=== PATIENT | female | born 1935 | race Caucasian/White ===

== ENCOUNTER 2021-12-27 14:09 | Outpatient (CLI) | payer MEDICARE, BC, SELFPAY ==
--- NOTE | ~2021-12-27 | CT_ITS ---
EXAMINATION: CT lumbar spine wo con DATE: 12/27/2021 14:44 INDICATION: Right-sided sciatica. TECHNIQUE: Computed tomography (CT) of the lumbar spine was performed without intravenous contrast. A utomated exposure control and iterative reconstruction technique were employed. The dose-length produ ct was 884.46 mGy-cm. COMPARISON: None FINDINGS: 20 degrees lumbar levoscoliosis. 2 mm retrolisthesis L1 on L2 and 4 mm anterolisthesis L4 on L5. Vert ebral body heights are normal. No fracture. Moderate to severe left-sided predominant disc height los s at T12-L1 and L1-L2 and moderate to severe right-sided predominant disc height loss at L3-L4. More diffuse moderate disc height loss at T11-T12 and L2-L3. Mild left-sided disc height loss at L5-S1. Th ere is hypoattenuation material of calcific density along the periphery of the thecal sac beginning a t the level of L3 and extending cephalad to the S2 level. There is curvilinear calcification along th e periphery of the central canal extending from L2 through S2, likely dural-based. Serially at the le suzi of L4 there appear to be a deeper and more superficial layer with intervening soft tissue density , there was a short thickening of the dura with deeper and more superficial calcifications or whether the internal calcification is associated with the nerve roots such as in the setting of arachnoiditi s ossificans. There is calcified atherosclerosis of the aorta and many of the other arteries in the p osterior pelvis there are few scattered sigmoid diverticula without adjacent inflammatory change to s uggest diverticulosis. 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 The following disc leve ls are specifically discussed: T11-T12: Disc is bulging. There is mild left and mild to moderate right facet joint osteoarthritis. T here is mild left neural foraminal stenosis. There is mild central canal stenosis. T12-L1: Disc is bulging. There is moderate right and severe left facet joint osteoarthritis. There is moderate right and mild left neural foraminal stenosis. There is mild central canal stenosis. L1-L2: Disc is bulging. There is moderate right and mild to moderate left facet joint osteoarthritis. There is moderate left and mild to moderate right neural foraminal stenosis. There is moderate centr al canal stenosis. L2-L3: Disc is bulging. There is mild right and moderate left facet joint osteoarthritis. There is mo derate left and moderate to severe right neural foraminal stenosis. There is mild to moderate central canal stenosis. L3-L4: Posterior disc osteophyte complex. There is mild to moderate left and moderate to severe right facet joint osteoarthritis. There is mild to moderate left and moderate to severe right neural ivett inal stenosis. There is moderate central canal stenosis. L4-L5: Disc is bulging. There is severe bilateral facet joint osteoarthritis. There is moderate bilat eral neural foraminal stenosis. There is severe central canal stenosis with the peripheral likely dur al based thin curvilinear calcification tapering to a single thin triangular calcification at the stevie tral aspect of the central canal at the level of the disc space. L5-S1: Disc is bulging. There is moderate to severe bilateral facet joint osteoarthritis. There is mi ld left neural foraminal stenosis. There is mild central canal stenosis. IMPRESSION: 1. 20 degrees lumbar levoscoliosis with moderate to severe spondylosis. 2. Thin curvilinear which could represent dural calcification related to chronic renal failure, hyper parathyroidism or other derangement of calcium metabolism versus chronic arachnoiditis calcifications . Reviewed, dictated and finalized at location A.
== END 2021-12-27 14:10 | disposition home or self-care (01) ==
PROVIDERS: PCP Family Medicine; Visit Provider Family Medicine
DX: M54.31 Sciatica, right side (principal); M47.896 Other spondylosis, lumbar region
CPT/HCPCS: 72131

== ENCOUNTER 2023-09-23 15:45 | Outpatient (CLI) | payer MEDICARE, BC, SELFPAY ==
--- NOTE | ~2023-09-23 | MR_ITS ---
EXAMINATION: MR lumbar spine wo con DATE: 09/23/2023 16:35 INDICATION: Low back pain. Lumbar radiculopathy. TECHNIQUE: Magnetic resonance imaging (MRI) of the lumbar spine was performed without intravenous con trast. Sequences included sagittal T2-weighted FSE, sagittal T2-weighted FS FSE, sagittal T1-weighted FSE, and axial T2-weighted FSE. COMPARISON: CT lumbar spine 12/27/21 FINDINGS: There is 14 degrees levoscoliosis of lumbar spine. There is 3 mm retrolisthesis of L1 on L2 and 3 mm anterolisthesis of L4 on L5. There is mild chronic anterior wedging of T12 and L1 vertebral bodies. There is severely decreased disc height at T12-L1 and L1-L2, moderately decreased disc heigh t at L2-L3, severely decreased disc height at L3-L4, and moderately decreased disc height at L4-L5. T he distal spinal cord signal intensity is normal. The conus medullaris is at L1. There is clumping an d peripheral displacement of the cauda equina, consistent with arachnoiditis. The following disc leve ls are specifically discussed: L1-L2: The disc is bulging and has an annular fissure. There is moderate right and mild left facet john int osteoarthritis. There is mild right and moderate left neural foraminal stenosis. There is mild ce ntral canal stenosis. L2-L3: The disc is bulging and has an annular fissure. There is moderate bilateral facet joint osteoa rthritis. There is mild bilateral neural foraminal stenosis. There is mild central canal stenosis. L3-L4: This is bulging and has an annular fissure. There is severe right and moderate left facet join t osteoarthritis. There is moderate right and mild left neural foraminal stenosis. There is mild cent ral canal stenosis. L4-L5: The disc is bulging and has an annular fissure. There is severe bilateral facet joint osteoart hritis. There is mild bilateral neural foraminal stenosis. There is severe central canal stenosis. L5-S1: The disc is bulging and has an annular fissure. There is severe bilateral facet joint osteoart hritis. There is mild bilateral neural foraminal stenosis. There is no central canal stenosis. IMPRESSION: 1. Severe lumbar spondylosis. 2. Lumbar levoscoliosis. 3. Arachnoiditis. Reviewed, dictated and finalized at location A.
== END 2023-09-23 15:46 | disposition home or self-care (01) ==
LOC: ANHIMG 15:46
PROVIDERS: PCP Family Medicine; Visit Provider Nurse Practitioner Family
DX: M47.26 Other spondylosis with radiculopathy, lumbar region (principal)
CPT/HCPCS: 72148